=== PATIENT | male | born 1960 | race Caucasian/White ===

== ENCOUNTER 2016-08-21 11:12 | Day surgery (SDC) | payer OTHER ==
[2016-08-14 09:35] LABS: HEMATOCRIT 44.2 % (40.0-51.0); HEMOGLOBIN 15.3 g/dL (13.6-17.8)
[2016-08-14 09:47] LABS: BUN (BLOOD UREA NITROGEN) 9 MG/DL (6-23); CALCIUM, SERUM 9.6 MG/DL (8.5-10.4); CHLORIDE, SERUM 103 MMOL/L (96-112); CO2 (CARBON DIOXIDE) 30 MMOL/L (24-34); CREATININE 0.82 MG/DL (0.70-1.30); GFR AFRICAN AMERICAN 117 ML/MIN (>=60); GFR NON AFRICAN AMERICAN 101 ML/MIN (>=60); GLUCOSE, SERUM 96 MG/DL (60-99); POTASSIUM, SERUM 4.4 MMOL/L (3.5-5.3); SODIUM, SERUM 137 MMOL/L (135-148)
--- NOTE | ~2016-08-21 | OP ---
Record Of Operation [facility] [address] [place]. [address] NAME: ROBERTO COLUNGA : 64 STATUS : [facility]#: [id number] AGE: 55 ADM/REG DATE : 08/21/16 MR#: [id number] REPORT SERV DATE: 08/24/16 DICTATED BY: NOEMI YEAGER DATE: 08/21/16 REPORT STATUS : Draft TRANSCRIBED BY: MODL DATE: 08/21/16 DATE OF PROCEDURE: 08/21/2016 PREOPERATIVE DIAGNOSIS: Warthin's tumor, left parotid. POSTOPERATIVE DIAGNOSIS: Warthin's tumor, left parotid. PROCEDURE PERFORMED: 1. Left superficial parotidectomy. 2. Left AlloDerm implant. SCALE CLERK: Mitchel Casanova ANESTHESIA: General with the nerve integrity monitoring system of the left facial nerve. COMPLICATIONS: None. CONDITION: Stable to recovery. INDICATIONS: A 55-year-old male with a history of left Warthin's tumor. PROCEDURE IN DETAIL: The patient was identified in preoperative holding, taken back to the operating room, and placed supine on the operating room table. General anesthesia was established. A time-out was called. The patient and procedure were confirmed. Facial nerve monitor was connected to the orbicularis auris and orbicularis oculi. The Isma incision was outlined and infiltrated with 4 mL of 1% lidocaine with 1:100,000 epinephrine. He was prepped and draped in a standard fashion for the operation. Using 2.5x loupe magnification and headlight illumination, the operation commenced. A 15 blade was used to make the skin incision. The combination of Bovie cautery and Metzenbaum scissors were used to elevate skin flaps. The tail of the parotid was mobilized off the sternomastoid muscle and this required sacrifice of the greater auricular nerve which was in close proximity to the tumor. We then identified the digastric muscle inferiorly and the tragal pointer superiorly, and dissected the tissues in between these two anatomic features to identify the facial nerve exiting the stylomastoid foramen. This was confirmed with the nerve stimulating probe. A nerve dissecting hemostat was used to dissect the PES portion of the nerve and then the lower division. The tumor was seated deep in the left tail of parotid. A combination of hemostat, Sterling nerve dissector, and Harmonic scalpel were used throughout the case. At the end of the case, the nerve stimulated in the upper and lower divisions. The wound was irrigated and bleeding controlled with bipolar cautery. An AlloDerm implant was placed after soaking for at least an hour in saline. The wound was closed in a single layer using 3-0 deep dermal to subcuticular Vicryl sutures. Once, it was closed there was some fullness and bleeding around the wound edges, so, the wound was opened up and blood was evacuated. There was some oozing noted at the drain site and deep adjacent to the retromandibular vein. Bipolar cautery was used for additional hemostasis. The wound was irrigated. There was no bleeding noted. The AlloDerm was replaced, secured to this parotid with one single 3-0 interrupted Vicryl suture and then the wound was closed in a single Record Of Operation [address] [address] NAME: ROBERTO COLUNGA : 64 STATUS : [facility]#: [id number] AGE: 55 ADM/REG DATE : 08/21/16 MR#: [id number] REPORT SERV DATE: 08/24/16 DICTATED BY: NOEMI YEAGER DATE: 08/21/16 REPORT STATUS : Draft TRANSCRIBED BY: MODL DATE: 08/21/16 layer using 3-0 deep dermal to subcuticular interrupted suture, followed by Steri-Strips. The patient was awakened and taken to recovery in stable condition. There were no . PH/MODL Noemi Yeager M.D. / [id number] CC: Prema Wang W. A.
[~2016-08-21 11:12] MED LIST: FLONASE NAS
== END 2016-08-21 20:09 | disposition home or self-care (01) ==
LOC: SDC 11:12
PROVIDERS: Specialist
PROC: 0WU Anatomical Regions, General, Supplement (ICD-10-PCS; 2016-08-21)
PROC: 0CB90ZZ Excision of Left Parotid Gland, Open Approach (ICD-10-PCS; principal; 2016-08-21 12:45)
DX: D11.0 Benign neoplasm of parotid gland (principal); F17.200 Nicotine dependence, unspecified, uncomplicated
CPT/HCPCS: 80048; 85014; 85018; 85730; 88307; 88331; 93005; A9270-GY; J0690; J2250; J2405; J2710; J3010; Q4116